=== PATIENT | female | born 1985 | race African-American/Black ===

== ENCOUNTER 2020-07-11 14:10 | Emergency (ER) | payer SELFPAY ==
[2020-07-11 15:02] LABS: Bilirubin Neg (Negative); Blood, Urine 250 (Negative); Clarity Slightly Cloudy (Clear); Glucose, Urine (Dipstick) Normal (Negative); Ketone, Urine Negative (Negative); Leukocyte 25 (Negative); Nitrite Negative (Negative); Protein, Urine (Dipstick) 100 mg/dl (Neg-Trace); Urobilinogen Normal mg/dL (Less than 2)
[2020-07-11 15:05] LABS: Pregnancy Test - Urine (BHCG) Negative (Negative); Pregu Control Background? CLEAR/WHITE (CLR/WHITE); Pregu Control Bar Appear? YES (CONTROL BAR)
[2020-07-11 15:07] LABS: ALT (SGPT) 60 U/L (8-55); AST (SGOT) 46 U/L (5-34); Albumin 4.8 g/dL (3.5-5.0); Alkaline Phosphatase 287 U/L (40-110); Anion Gap 13 mmol/L (10-20); BUN (Urea Nitrogen) 11 mg/dL (7.0-18.7); Bilirubin, Total 0.3 mg/dL (0.2-1.2); Calc. Creatinine Clearance 0 mL/min (70-130); Carbon Dioxide 28 mmol/L (22-29); Chloride 101 mmol/L (98-107); Globulin 4.6 g/dL (2.4-3.5); Glucose 103 mg/dL (70-105); Potassium 3.6 mmol/L (3.5-5.1); Protein, Total 9.4 g/dL (6.0-8.3); Sodium 138 mmol/L (136-145)
[2020-07-11] MEDS ORDERED: Ondansetron PF 4 MG/2 ML Vial ONE ×2 (15:08→16:32)
[2020-07-11] MEDS ORDERED: Fentanyl 100 MCG/2 ML VIAL ONE (15:09)
[2020-07-11 15:17] LABS: #Basophils 0.1 10x3/uL (0.0-0.2); #Eosinphils 0.3 10x3/uL (0.0-0.5); #Monocytes 0.4 10x3/uL (0.0-1.1); %Eosinophils 4.5 % (0.0-6.0); %Lymphocytes 34.7 % (18.0-47.0); %Monocytes 5.7 % (0.0-10.0); Hemoglobin 12.7 g/dL (12.0-15.5); Mean Corpuscular HGB CONC 31.2 g/dL (32.0-36.0); Mean Corpuscular Hemoglobin 26.1 pg (27.0-33.0); Mean Corpuscular Volume 83.7 fl (81.6-98.3); Mean Platelet Volume 10.9 fl (7.4-10.4); Platelet Count 421 10x3/uL (150-450); RBC Distribution Width 14.6 % (11.5-14.5); Red Blood Cell (RBC) Count 4.86 10x6/uL (3.90-5.03); White Blood Cell (WBC) Count 6.2 10x3/uL (3.5-10.5)
[2020-07-11 15:27] LABS: RBC/HPF Greater than 50 HPF (0-3); WBC/HPF 0-3 HPF (0-3)
[2020-07-11 15:29] LABS: Bacteria/HPF Rare-Few HPF (None Seen); Squamous Epithelial 0-3 HPF (0-3)
[2020-07-11 15:35] LABS: #Neutrophils 3.4 10x3/uL (1.5-8.4); %Neutrophils 54.1 % (40.0-75.0)
[2020-07-11] MEDS ORDERED: Morphine 4 MG/ML VIAL ONE ×2 (16:32→17:09)
[2020-07-11] MEDS ORDERED: HYDROmorphone 0.5 MG/0.5 ML SYRINGE ONE (18:09)
== END 2020-07-11 18:14 | disposition home or self-care (01) ==
LOC: CSHERS 14:10
DX: N20.0 Calculus of kidney (principal)
CPT/HCPCS: 80053; 81003; 81015; 81025; 85025; 96374; 96375; J1170; J2270; J2405; J3010